=== PATIENT | female | born 2000 | race Two or more races ===

== ENCOUNTER 2024-10-07 05:45 | Emergency (ER) | payer SELFPAY ==
[2024-10-07 05:46] VITALS: BMI 33.3
--- NOTE | 2024-10-07 06:07 | PC.NURSE ---
PATIENT STATED THAT SHE WAS FEELING A LITTLE BETTER AND WAS GOING TO GO CALL HER PRIMARY PROVIDER INSTEAD. PATIENT LEFT ED AT THIS TIME.
== END 2024-10-07 06:07 | disposition left against medical advice (07) ==
LOC: SERX 06:41
PROVIDERS: Emergency Provider Emergency Medicine
DX: Z53.21 Procedure and treatment not carried out due to patient leaving prior to being seen by health care provider (principal)
CPT/HCPCS: 99281

== ENCOUNTER 2024-10-07 08:24 | Emergency (ER) | payer BC, SELFPAY ==
[2024-10-07 08:25] VITALS: BMI 33.6
[2024-10-07 08:30] VITALS: BP 129/83; PULSE 71; RESP 19; TEMP 37.1; O2SAT 96; BMI 33.6
--- NOTE | 2024-10-07 08:42 | XR_ITS ---
Examination: Abdomen sonogram, Limited Date and time of exam: October 07, 2024 0849 hours INDICATIONS: Right upper abdominal pain beginning 2 days ago Technique: Real-time cole scale transabdominal sonographic images of the upper abdomen obtained. Findings: 4 mm and 6 mm gallbladder polyps Negative for gallstones Normal gallbladder wall Normal common bile duct Pancreatic head 2.8 cm Liver 15.7 cm fatty infiltration mildly lobular contour Normal hepatopedal portal venous flow Patent IVC IMPRESSION: Small gallbladder polyps, suspect primary hepatocellular disease
--- NOTE | 2024-10-07 08:49 | EDNOTE_ITS ---
ED Abdominal Pain RME/HPI General Chief Complaint: Abdominal Pain Stated complaint: ABD PAIN Time seen by provider: 10/07/24 08:33 Arrival date/time: 10/07/24 08:24 24-year-old female with no known medical history presents to the emergency room with a chief complaint of epigastric and right upper quadrant abdominal pain x 1 day Source: patient Mode of arrival: ambulatory Limitations: no limitations Related Data Previous Rx's ?Medication ?Instructions ?Recorded pantoprazole 20 mg tablet,delayed 20 mg PO QDAY #14 ta bs 05/21/21 release (Protonix) ondansetron 4 mg disintegrating 4 mg PO Q8H PRN nausea and 10/07/24 tablet vomiting #14 tabs Allergies Allergy/AdvReac Type Severity Reaction Status Date / Time No Known Allergies Allergy Verified 10/07/24 08:27 Review of Systems Review of Systems Systems Reviewed: All systems reviewed, normal except as documented Constitutional Constitutional: Reports system reviewed and no additional complaints, except as documented, Denies fatigue, Denies fever(s), Denies headache(s) and Denies weakness Eyes Eyes: Reports system reviewed and no additional complaints, except as documented, Denies blurry vision and Denies change in vision ENT Ears, Nose, Mouth, and Throat: Reports system reviewed and no additional complaints, except as documented, Denies otalgia, Denies headache(s), Denies nasal congestion, Denies throat swelling and Denies vertigo Cardiovascular Cardiovascular: Reports system reviewed and no additional complaints, except as documented, Denies chest pain, Denies dyspnea and Denies dyspnea on exertion Respiratory Respiratory: Reports system reviewed and no additional complaints, except as documented, Denies chest congestion, Denies cough, Denies dyspnea, Denies dyspnea on exertion and Denies wheezing Gastrointestinal Gastrointestinal: Reports system reviewed and no additional complaints, except as documented, Reports abdominal pain, Reports cramping, Reports nausea and Denies vomiting Genitourinary Genitourinary: Reports system reviewed and no additional complaints, except as documented Musculoskeletal Musculoskeletal: Reports system reviewed and no additional complaints, except as documented and Denies back pain Integumentary/Breasts Skin/Breast: Reports system reviewed and no additional complaints, except as documented and Denies wounds Neurologic Neurologic: Reports system reviewed and no additional complaints, except as documented, Denies confusion, Denies headache(s), Denies lack of coordination, Denies vertigo and Denies weakness Psychiatric Psychiatric: Reports system reviewed and no additional complaints, except as documented, Denies anxiety, Denies confusion, Denies depression, Denies paranoia, Denies suicidal ideation and Denies tactile hallucinations Endocrine Endocrine: Reports system reviewed and no additional complaints, except as documented and Denies fatigue Hematologic/Lymphatic Hematologic/Lymphatic: Reports system reviewed and no additional complaints, except as documented and Denies lymphadenopathy Allergic/Immunologic Allergic/Immunologic: Reports system reviewed and no additional complaints, except as documented, Denies throat swelling, Denies urticaria and Denies wheezing ED Exam General Limitations: Present no limitations General appearance: Present alert and in no apparent distress Head Head exam: Present atraumatic Eye Eye exam: Present normal appearance, PERRL and EOMI ENT ENT exam: Present normal exam, normal oropharynx and mucous membranes moist Neck Neck exam: Present normal inspection, full ROM and trachea midline Chest Chest inspection: Present normal inspection and symmetric chest wall rise Respiratory Respiratory exam: Present normal lung sounds bilaterally Cardiovascular Cardiovascular exam: Present regular rate, normal rhythm and normal heart sounds Abdominal Exam Abdominal exam: Present soft, tenderness and normal bowel sounds; Absent distention, guarding, rebound, rigidity, Ac's sign or tenderness at McBurney's Point Abdominal tenderness: Present RUQ and mild Extremities Exam Extremities exam: Present normal inspection and full ROM Back Exam Back exam: Present normal inspection and full ROM Neurological Exam Neurological exam: Present alert, oriented X3 and CN II-XII intact Psychiatric Psychiatric exam: Present normal affect and normal mood Skin Skin exam: Present warm, dry, intact and normal color Course Quality Measures none Orders Category Date Time Status US gall bladder Stat Exams 10/07/24 08:42 Completed CBC Stat Lab 10/07/24 09:44 Completed CMP [Comprehensive Metabolic Panel] Stat Lab 10/07/24 09:44 Completed HCG Qualitative,Urine Stat Lab 10/07/24 09:56 Completed Lipase Stat Lab 10/07/24 09:44 Completed UA [Urinalysis] Stat Lab 10/07/24 09:56 Completed Urine Culture Stat Lab 10/07/24 09:56 Received HYDROcodone*/APAP 5/325 [[place] 5/325] Med 10/07/24 08:42 Discontinued 1 tab PO X1 ONE Ondansetron Odt [Zofran Odt] Med 10/07/24 08:42 Discontinued 4 mg PO X1 ONE mg Hyd/Al Hyd/Ana Susp [Maalox Susp] Med 10/07/24 08:42 Discontinued 30 ml PO X1 ONE Vital Signs Vital signs: Vital Signs Temperature 98.7 F 10/07/24 08:30 Pulse Rate 71 10/07/24 08:30 Respiratory Rate 19 10/07/24 08:30 Blood Pressure 129/83 10/07/24 08:30 Pulse Oximetry (%) 96 10/07/24 08:30 Oxygen Delivery Method Room Air 10/07/24 08:30 O2 saturation 96% within normal limits Abdominal Pain MDM MDM Narrative MDM Narrative:: 24-year-old female with no known medical history presents to the emergency room with a chief complaint of epigastric and right upper quadrant abdominal pain x 1 day Patient is hemodynamically stable and in no apparent distress. She is afebrile not tachycardic and not tachypneic Physical examination shows some 7 out of 10 epigastric pain that radiates to the right upper quadrant. There is no right lower quadrant tenderness or tenderness to McBurney's point Ultrasound of the gallbladder was negative for any cholelithiasis or cholecystitis however there is some fatty liver Urinalysis was within normal limits Patient was discharged and educated to follow-up with primary care provider in the next 24 to 48 hours and return to the emergency room for any evidence of worsening signs or symptoms Patient data External records reviewed:: [facility] previous records Clinical information provided by:: patient Social determinants that could affect healthcare access:: none Patient has the following chronic illnesses:: No chronic illness How is presenting disease/condition affected by chronic disease/condition?: no chronic disease Evaluation data The following diagnostics were reviewed and interpreted by me:: lab results and radiology exam(s) Lab and/or radiology exams considered but not ordered:: Labs and radiology exams considered in order Interpretation Summary: Ultrasound gallbladder-Findings: 4 mm and 6 mm gallbladder polyps Negative for gallstones Normal gallbladder wall Normal common bile duct Pancreatic head 2.8 cm Liver 15.7 cm fatty infiltration mildly lobular contour Normal hepatopedal portal venous flow Patent IVC IMPRESSION: Small gallbladder polyps, suspect primary hepatocellular disease Medications / Prescriptions Medications or Prescriptions considered but not ordered:: Medication given Medication administrations:: Medication Administration History Discontinued Medications Hydrocodone Bitart/Acetaminophen (Hydrocodone/[place] 5/325 Tablet) 1 tab PO X1 ONE Stop: 10/07/24 08:43 Last Admin: 10/07/24 09:22 Dose: 1 tab Documented By: OA Al Hydrox/Mg Hydrox/Simethicone (Mg Hyd/Al Hyd/Ana (Maalox Reg) Susp 30 Ml Udc) 30 ml PO X1 ONE Stop: 10/07/24 08:43 Last Admin: 10/07/24 09:22 Dose: 30 ml Documented By: OA Ondansetron HCl (Ondansetron Odt 4 Mg Tabrap) 4 mg PO X1 ONE; Protocol Stop: 10/07/24 08:43 Last Admin: 10/07/24 09:22 Dose: 4 mg Documented By: OA Medication given Consultations Consultation(s) initiated? (list below): No Diagnosis Differential diagnosis abdominal pain: abdominal pain, gastroenteritis and other (Cholelithiasis/cholecystitis/urinary tract infection) Most likely diagnosis given after review of the tests above:: Gastroenteritis Admission Indicated Admission indicated?: not indicated Admission Request Was there a request for admission?: No Disposition Plan Disposition Plan: Discharge Discharge Attestation Discharge Attestation: The patient and all family members were given an opportunity to ask questions and understood the discharge instructions. Discharge instructions specifically effects, indications for sooner follow up or return to the emergency department, and the expected course of current diagnosis. Patient condition: Stable Discharge Plan Plan Patient Disposition: HOME (Self Care) Discharge Disposition comment: Stable Prescriptions/Referrals Prescriptions/Med Rec: New ondansetron 4 mg tablet,disintegrating 4 mg PO Q8H PRN (Reason: nausea and vomiting) Qty: 14 0RF No Action pantoprazole [Protonix] 20 mg tablet,delayed release (DR/EC) 20 mg PO QDAY Qty: 14 0RF Referrals: No Primary/Family,Physician [Primary Care Provider] - In 1 week Problem List Clinical Impression: Gastroenteritis Patient/Caregiver Discharge Instructions Education Materials: ED Gastroenteritis, Noninfectious Additional Instructions: Please follow-up with your primary care provider in the next 24 to 48 hours Your ultrasound of your gallbladder was negative for any acute findings. Your blood work and urinalysis were within normal limits For any evidence of worsening signs or symptoms return to the emergency room immediately Print Language: Setswana Stand Alone Forms: Margaret Award Info., Work/School Release, Patient Portal Info Letter KELLY/NAVDEEP Supervising Physician KELLY/NAVDEEP Supervising Physician: Dr Ross
[2024-10-07] MEDS: MG HYD/AL HYD/SIME (Maalox Reg) SUSP 30 ML UDC PO (09:22)
[2024-10-07] MEDS: HYDROcodone/APAP 5/325 TABLET 1 TAB PO (09:22)
[2024-10-07] MEDS: ONDANSETRON ODT 4 MG TABRAP PO (09:22)
[2024-10-07 10:00] LABS: Basophils # (Auto) 0.1 Thou/mm3 (0.0-0.2); Basophils % (Auto) 1 % (0-2.5); Eosinophils # (Auto) 0.1 Thou/mm3 (0.0-0.5); Eosinophils % (Auto) 1 % (0-10); Hemoglobin 12.7 g/dL (12.0-16.0); Immature Granulocytes % (Auto) 1 % (0-0); Immature Granulocytes Auto 0.04 Thou/mm3 (0.00-0.00); Lymphocytes # (Auto) 0.8 Thou/mm3 (1.0-4.8); Lymphocytes % (Auto) 9 % (10-50); Mean Corpuscular HGB Conc 33.4 g/dl (31.0-37.0); Mean Corpuscular Hemoglobin 28.3 pg (25.0-35.0); Mean Corpuscular Volume 85 fL (80-100); Monocytes % (Auto) 11 % (0-12); Neutrophils # (Auto) 6.7 Thou/mm3 (1.8-7.7); Neutrophils % (Auto) 78 % (37-80); Nucleated Red Blood Cell % 0 /100 WBC (0); Platelet Count 226 Thou/mm3 (140-440); RDW Standard Deviation 36.8 fL (36.4-46.3); Red Blood Count 4.48 Miln/mm3 (4.00-5.20); White Blood Count 8.6 Thou/mm3 (3.6-11.0)
[2024-10-07 10:02] LABS: Collection Type, Urine Clean Catch
[2024-10-07 10:12] LABS: HCG Qualitative,Urine Negative
[2024-10-07 10:17] LABS: Alanine Aminotransferase 99 U/L (10-49); Albumin, Serum 4.4 gm/dL (3.5-5.0); Albumin/Globulin Ratio 1.7 (1.2-2.2); Alkaline Phosphatase 58 U/L (46-116); Anion Gap 11 (7-16); Aspartate Amino Transferase 183 U/L (0-34); BUN/Creatinine Ratio 13 Ratio (12-20); Bilirubin,Total 0.5 mg/dL (0.3-1.2); Blood Urea Nitrogen 9 mg/dL (9-23); Calcium 9.1 mg/dL (8.3-10.6); Calcium (Corrected) 9.1 mg/dL (8.5-10.1); Carbon Dioxide 28.3 mMol/L (20.0-31.0); Chloride 103 mMol/L (98-107); Creatinine (Component) 0.7 mg/dL (0.6-1.3); Estimated Creatinine Clearance 126.7 mL/min (>60); Globulin 2.6 gm/dL (2.3-3.5); Glucose 101 mg/dL (74-106); Lipase 35 U/L (12-53); Osmolality,Calculated 281 (275-295); Potassium 4.4 mMol/L (3.4-5.1); Sodium 142 mMol/L (136-145); eGFR > 60 See Note
[2024-10-07 10:25] LABS: Bacteria,Urine Rare; Bilirubin,Urine Negative (Negative); Blood,Urine Negative (Negative); Clarity,Urine Clear (Clear/Hazy); Color,Urine Lt-Yellow (Lt Yel-Yel); Glucose, Urine Negative (Negative); Ketones,Urine 1+ (Negative); Leukocyte Esterase,Urine Negative (Negative); Nitrite,Urine Negative (Negative); Protein,Urine Negative (Neg - Trace); RBC,Urine 2 /hpf (0-3); Squamous Epithelial Cell,Urine < 1 /hpf (0-5); Urobilinogen,Urine Negative mg/dL (0.0-1.0); WBC,Urine 1 /hpf (0-5)
== END 2024-10-07 12:02 | disposition home or self-care (01) ==
PROVIDERS: Nurse Practitioner Family; Emergency Provider Emergency Medicine
DX: K52.9 Noninfective gastroenteritis and colitis, unspecified (principal); K82.4 Cholesterolosis of gallbladder; K76.0 Fatty (change of) liver, not elsewhere classified
CPT/HCPCS: 36415; 76705; 80053; 81001; 81025; 83690; 85025; 87086; 99284; Q0162; A9270